=== PATIENT | female | born 1990 | race Caucasian/White ===

== ENCOUNTER 2018-08-09 13:28 | Outpatient (CLI) | payer OTHER ==
--- NOTE | 2018-08-10 12:28 | Ultrasound Report ---
Reason: ENCOUNTER FOR OTHER SPECIFIED SCREENING Procedure Date: 08/09/2018 Accession Number: [id number] / [id number] Procedure: US - OB Detailed Eval CPT Code: FULL RESULT: EXAM: COMPLETE OBSTETRICAL ULTRASOUND EXAM DATE: 08/09/2018 04:03 PM. CLINICAL HISTORY: anatomic survey. COMPARISON: None. TECHNIQUE: Real-time sonographic evaluation of the fetus performed by the triage registered nurse. Multiple hobbies and crafts sales representative static images were saved for review. DATING: Established EGA 21 weeks 5 days with PENNY 12/15/2018 based on ordering provider input. EGA 22 weeks 5 days with PENNY 12/08/2018 based on the current ultrasound. GENERAL EVALUATION Robin . Cardiac activity: 157 bpm. movement: Visualized. Presentation: Cephalic. Placenta: Posterior position. No evidence for previa. Umbilical cord: 3 vessel cord. Central placental cord origin. Amniotic fluid: Subjectively normal. MVP 4.0 cm and LUKE 15.3 cm. BIOMETRY Bi-Parietal Diameter (BPD): 5.7 cm, 23 weeks 2 days Head Circumference (HC): 21.2 cm, 23 weeks 1 day Abdominal Circumference (AC): 18.2 cm, 22 weeks 6 days Femur Length (FL): 3.7 cm, 22 weeks 0 days Estimated Weight: 526 g which approximately corresponds to the 90th percentile for 21 weeks and 5 days. ANATOMY The intracranial structures, profile, face/nose/lips, spine, 4 chamber heart and outflow tracts, stomach, abdominal wall and cord insertion, diaphragm, kidneys, bladder, and extremities were visualized and demonstrate no abnormality. MATERNAL STRUCTURES Uterus: Unremarkable. Cervix: Long and closed. Transabdominal length 4.5 cm. Right ovary/adnexa: Unremarkable. Left ovary/adnexa: Unremarkable. Free fluid: None. IMPRESSION: 1. Robin live intrauterine with gestational age 21 weeks 5 days based on obstetric provider input. 2. Estimated weight is around the 90th percentile for assigned dating. 3. Normal anatomic survey. No anatomic abnormalities are detected at this time. RADIA
== END 2018-08-09 13:29 | disposition home or self-care (01) ==
LOC: DI 13:28
PROVIDERS: ATTEND Nurse Practitioner Obstetrics & Gynecology
DX: Z36.89 Encounter for other specified antenatal screening (principal); Z3A.21 21 weeks gestation of pregnancy
CPT/HCPCS: 76811

== ENCOUNTER 2018-09-09 13:03 | Outpatient (CLI) | payer OTHER ==
[2018-09-09 14:28] LABS: HGB - HEMOGLOBIN 11.7 g/dL (12.0-16.0); MEAN CORPUSCULAR HGB CONC 35.7 g/dL (32.0-36.0); MEAN CORPUSCULAR VOLUME 89.5 fL (81.0-99.0); MEAN PLATELET VOLUME 7.4 fL (7.9-10.8); RED BLOOD COUNT 3.66 10^6/uL (4.20-5.40); RED CELL DISTRIBUTION WIDTH 13.6 % (12.0-15.0); WHITE BLOOD COUNT 9.3 x10^3/uL (4.8-10.8)
== END 2018-09-09 13:04 | disposition home or self-care (01) ==
LOC: LAB 13:03
PROVIDERS: ATTEND Registered Nurse
DX: Z34.90 Encounter for supervision of normal pregnancy, unspecified, unspecified trimester (principal)
CPT/HCPCS: 36415; 82950; 85027; 86850

== ENCOUNTER 2018-09-10 11:40 | Outpatient (CLI) | payer OTHER | END 2018-09-10 11:41 | disposition home or self-care (01) | LOC: LAB 11:40 | PROVIDERS: ATTEND Registered Nurse | DX: L29.9 Pruritus, unspecified (principal) | CPT/HCPCS: 36415; 82542 ==

== ENCOUNTER 2018-11-18 13:12 | Outpatient (CLI) | payer OTHER | END 2018-11-18 23:59 | disposition home or self-care (01) | LOC: LAB.R 13:12 | PROVIDERS: ATTEND Registered Nurse | DX: Z34.90 Encounter for supervision of normal pregnancy, unspecified, unspecified trimester (principal) | CPT/HCPCS: 87491; 87591; 87797 ==

== ENCOUNTER 2018-11-18 13:53 | Outpatient (CLI) | payer OTHER ==
[2018-11-19 13:12] LABS: HEPATITIS C ANTIBODY NON-REACTIVE (NON-REACTIVE)
[2018-11-19 14:15] LABS: HIV AG/AB 4TH GEN NON-REACTIVE (NON-REACTIVE)
== END 2018-11-18 13:54 | disposition home or self-care (01) ==
LOC: LAB 13:53
PROVIDERS: ATTEND Registered Nurse
DX: Z34.90 Encounter for supervision of normal pregnancy, unspecified, unspecified trimester (principal)
CPT/HCPCS: 36415; 81599; 86803; 87389

== ENCOUNTER 2018-12-16 02:21 | Inpatient (IN) | payer OTHER ==
[2018-12-16] MEDS ORDERED: AMPICILLIN 2 GM in SODIUM CHLORIDE 0.9% MINIBAG 100 ML IV ONE (02:46)
[2018-12-16] MEDS ORDERED: ONDANSETRON 4 MG/2 ML VIAL IVP PRN (02:46)
[2018-12-16] MEDS ORDERED: SODIUM CHLORIDE FLUSH 0.9% 10 ML SYRINGE IVP PRN (02:46)
[2018-12-16] MEDS ORDERED: fentaNYL 100 MCG/2 ML VIAL IVP PRN (02:46)
[2018-12-16] MEDS ORDERED: LACTATED RINGERS 1,000 ML IV SCH (03:00)
[2018-12-16 03:35] LABS: BASOPHILS % (AUTO) 0.4 %; EOSINOPHILS # (AUTO) 0.1 10^3/uL (0.0-0.7); EOSINOPHILS % (AUTO) 0.7 %; HGB - HEMOGLOBIN 12.7 g/dL (12.0-16.0); LYMPHOCYTES # (AUTO) 1.3 10^3/uL (1.5-3.5); MEAN CORPUSCULAR HEMOGLOBIN 31.9 pg (27.0-31.0); MEAN CORPUSCULAR HGB CONC 34.7 g/dL (32.0-36.0); MEAN CORPUSCULAR VOLUME 92.1 fL (81.0-99.0); MEAN PLATELET VOLUME 9.9 fL (7.9-10.8); MONOCYTES # (AUTO) 0.8 10^3/uL (0.0-1.0); MONOCYTES % (AUTO) 8.8 %; NEUTROPHILS # (AUTO) 7.2 10^3/uL (1.5-6.6); NEUTROPHILS % (AUTO) 76.1 %; PLT - PLATELET COUNT 124 10^3/uL (130-450); RED CELL DISTRIBUTION WIDTH 14.3 % (12.0-15.0); WHITE BLOOD COUNT 9.4 x10^3/uL (4.8-10.8)
[2018-12-16] MEDS ORDERED: OXYTOCIN/SODIUM CHLORIDE 500 ML IV ONE (04:31)
[2018-12-16] MEDS: AMPICILLIN 1 GM in SODIUM CHLORIDE 0.9% MINIBAG 100 ML IV SCH ×2 (07:31→11:55)
--- NOTE | 2018-12-16 07:33 | HISTORY & PHYSICAL EXAMINATION ---
Admit History - Visit Reason Visit Reason: Contractions - : 1 Parity: 0 Premature: 0 Ectopic: 0 : 0 Care: positive: [facility] Risk/History: positive: None Complications This : positive: None Smoking Status: Never smoker - Mother's Labs Mother's Blood Type: positive: A Mother's RH: positive: Negative GBS: positive: Group B Strep Positive Rubella Status: positive: Immune Meds/Allgy - Allergies Allergies/Adverse Reactions: Allergies Allergy/AdvReac Type Severity Reaction Status Date / Time No Known Drug Allergies Allergy Verified 12/16/18 03:07 Review of Systems - Constitutional Constitutional: denies: Fatigue, Fever, Chills, Malaise - Eyes Eyes: denies: Blurred vision, Spots in vision, Dipolpia - Cardiovascular Cariovascular: denies: Irregular heart rate, Chest pain, Edema - Respiratory Respiratory: denies: Cough, SOB at rest - Gastrointestinal Gastrointestinal: denies: Abdominal pain, Constipation, Diarrhea, Nausea, Vomiting - Integumentary Integumentary: denies: Rash, Pruritis - Neurological Neurological: denies: Headache - Psychiatric Psychiatric: denies: Depression, Anxiety Physical - Abdominal Exam Vital Signs: Temp Pulse Resp BP Pulse Ox 36.8 C 91 18 106/74 100 12/16/18 02:26 12/16/18 02:26 12/16/18 02:26 12/16/18 02:26 12/16/18 02:26 Contraction Frequency (min/apart): 3-5 Contraction Intensity: positive: Strong Uterine Resting Tone: positive: Soft - Monitoring Heart Rate Baseline: 130 Strip Review: positive: Category I - Presentation Presentation: positive: Vertex - Vaginal Exam Membranes: positive: Membranes intact Dilation (in cm): 6 Effacement (%): 80 Station: positive: -1 Cervical Position: positive: Anterior - Speculum Exam Speculum Exam Performed: positive: No Plan for Labor - Plan For Labor I expect patient to be DC'd or transferred within 96 hours.: Yes Plan for Labor: HPI: This 28yo @ 40.1wks gestation by LMP c/w 11.5wk U/S presents to [facility] on with complaints consistent uterine contractions which have increased in frequency and intensity. She denies VB or Lof. Reports +FM. She has been a patient of [facility] since 18wks gestation after she transferred her care from [facility]. She has received consistent care through the duration of her . Her has been uneventful with the exception of Rh positive status for which she received rhogam following her negative antibody screen at 28 weeks gestation, and testing positive for GBS at 36 weeks. She was admitted to [facility] for expectant management. Dating criteria: LMP 03/10/2018 Initial ultrasound at 11.5wks - agrees Serial exams - agree PMHx: none Surgical hx: none Social Hx: Never smoker. No ETOH or IVDA. Family Hx: Breast cancer - mother, maternal grandmother; Diabetes - Father; Heart disease - maternal grandfather Genetic Hx: neg pt; neg FOB Immunizations: Tdap 09/28/2018 Rhogam 09/28/2018 Obstetric Hx: G1: Current Physical Exam: Normocephalic, atraumatic Heart RRR w/o M/G/R Lungs CTAB Abdomen soft and nontender EFW 3200g SVE 6/80/-1, vertex, posterior, BOW intact Contractions palpate firm every 3-5 minutes with soft resting tone Bilateral LE's trace edema Assessment: 28yo @ 40.1wks gestation by L=11.3wk U/S Active labor BOW intact GBS positive Thrombocytopenia on admit - PLT 124 Plan: Intrapartum antibiotic prophylaxis per protocol secondary to GBS positive status. Intermittent auscultation of heart rate Continue expectant management Encouraged movement and position changes Anticipate spontaneous vaginal delivery
--- NOTE | 2018-12-16 08:00 | PROVIDER PROGRESS NOTE ---
Labor Progress Note - Uterine Monitoring Uterine Monitoring Mode: positive: Palpation Contraction Frequency (min/apart): 3-5 Contraction Intensity: positive: Strong Uterine Resting Tone: positive: Soft - Monitoring Monitor Mode: positive: Doppler/auscultation Heart Rate Baseline: 140 Decelerations: positive: None - Labor Progress Note Labor Progress Note/Additional Text: S: Patient breathing through contractions and coping well. She felt increased rectal pressure but did have a bowel movement and the rectal pressure resolved. Her and her steel burner are supportive at the bedside. The pt declines SVE. O: BP 106/74, HR 80 FHR baseline 140s via intermittent auscultation without audible decelerations in heart rate with, during, or after contractions SVE deferred per patient request A: 28yo @ 40.1wks gestation by LMP GBS positive - s/p 2 doses of Ampicillin Active labor BOW intact P: Intermittent auscultation of heart rate Continue expectant management Continue IPAP for GBS positive status per protocol Anticipate spontaneous vaginal delivery
[2018-12-16] MEDS ORDERED: SODIUM CHLORIDE FLUSH 0.9% 10 ML SYRINGE IVP SCH (09:00)
[2018-12-16] MEDS ORDERED: LIDOCAINE 1% 50 ML MDV TD ONE (15:34)
[2018-12-16] MEDS ORDERED: OXYTOCIN/SODIUM CHLORIDE 500 ML IV PRN (15:35)
[2018-12-16] MEDS ORDERED: WITCH HAZEL/GLYCERIN 1 EACH MED..PAD TOP PRN (16:17)
[2018-12-16] MEDS ORDERED: HYDROCORTISONE 1% CREAM 28 GM TUBE PR PRN (16:17)
[2018-12-16] MEDS ORDERED: miSOPROStol 200 MCG TABLET PO SCH (16:19)
[2018-12-16] MEDS ORDERED: ACETAMINOPHEN 325 MG TABLET PO PRN (16:35)
[2018-12-16] MEDS: IBUPROFEN 800 MG TABLET PO SCH ×2 (16:40→23:02)
[2018-12-16] MEDS ORDERED: LIDOCAINE-MPF 1% 30 ML VIAL ONE (16:44)
--- NOTE | 2018-12-16 16:48 | DELIVERY NOTE ---
Delivery Note - Labor Labor: positive: Spontaneous, Augmented by ARM - Infant Delivery Method Delivery Method: positive: Spontaneous vaginal delivery - Presentation Presentation: positive: Vertex, Compound, AKOSUA - left occiput anterior - Nuchal Cord Nuchal Cord: positive: None - Amniotic Fluid Description Amniotic Fluid Description: positive: Clear - Episiotomy Type Episiotomy Type: positive: None - Laceration Laceration: positive: 2nd degree - Suture Suture Type: positive: Vicryl Suture Size: positive: 2-0 - Delivery Outcome Delivery Outcome: positive: Livebirth - [place]: positive: Placed in direct skin contact with mother, Stimulated, Warmed, [place] used [place] sex: positive: Female - Cord Cord: positive: 3 vessels - Placenta Placenta: positive: Manual removal - Estimated Blood Loss Estimated Blood Loss (in cc): 450 - Post Delivery Events Post Delivery Events: positive: No post delivery events - Delivery Comments (Free Text/Narrative) Delivery Comments (Free Text/Narrative): Labor: This 28yo @ 40.1wks gestation by LMP presented 12/16/2018 @ approximately 0230 in active labor. Cervix was 6/80/-1, vertex with intact membranes. She was admitted to [facility] for expectant management. FHR pattern demonstrated Category I pattern throughout labor. AROM occurred at 0821 and was noted to be a moderate amount of clear fluid. Patient progressed to c/c/+2 at 1255. : Normal of [id number] female infant on 12/16/2018 @ 1509. No nuchal cord. Left, cross-body compound hand. 's 8/9 at 1 and 5 min respectively. The was placed on maternal abdomen, stimulated, dried, and placed skin to skin. Pitocin administered via IV for hemostasis. The umbilical cord was allowed to stop pulsating at which time it was doubly clamped by CNM and cut by FOB. Cord blood was obtained. Leading membranes delivered without delivery of the placenta and IV pitocin was shut off to allow for manual removal. The umbilical cord insertion site appeared to be <2cm from placenta edge. Placenta required manual removal secondary to inability to apply gentle, downward traction due to the umbilical cord location and patient's increased rate of bleeding. Placenta removed completely and all sections appear to have been removed. 3VC. Pitocin resumed via IV for hemostasis with little improvement in brisk flow of bleeding. 800mcg misoprostol orally administered and bleeding completely subsided. EBL 450mL. Uterine fundus firm and bleeding is moderate to minimal. The perineum, vagina, and cervix were inspected and found to have 2nd degree vaginal laceration which was repaired using a 2-[address]-1 needle in standard fashion under sterile conditions. Vaginal and rectal examination following repair was completed. Tissues well approximated. initiated. Family bonding well. Both mother and were left in stable condition.
[2018-12-16] MEDS ORDERED: LOPERAMIDE 2 MG CAPSULE PO PRN (19:03)
[2018-12-16] MEDS ORDERED: RHO(D) IMMUNE GLOBULIN 300 MCG SYRINGE IVP ONE (19:58)
[2018-12-17] MEDS: IBUPROFEN 800 MG TABLET PO SCH ×3 (04:58→21:40)
[2018-12-17 10:24] LABS: MEAN CORPUSCULAR HEMOGLOBIN 31.8 pg (27.0-31.0); MEAN CORPUSCULAR HGB CONC 34.3 g/dL (32.0-36.0); MEAN CORPUSCULAR VOLUME 92.9 fL (81.0-99.0); MEAN PLATELET VOLUME 9.6 fL (7.9-10.8); RED BLOOD COUNT 3.14 10^6/uL (4.20-5.40); RED CELL DISTRIBUTION WIDTH 14.2 % (12.0-15.0); WHITE BLOOD COUNT 11.2 x10^3/uL (4.8-10.8)
--- NOTE | 2018-12-17 10:32 | PROVIDER PROGRESS NOTE ---
Subjective - Subjective Subjective: S: Bonding well with baby. without difficulty. Bleeding minimal. Pain well controlled with oral medications. She is sore but overall feeling well. Denies GIRARD, dizziness or light headedness. Denies excessive fatigue. O: BP 108/73, HR 76, T 36.6, RR 14 Heart RRR w/o M/G/R, lungs CTAB, abdomen soft and nontender with fundus firm at U. Bilateral LE's 1+ pitting edema to feet - significant improvement from yesterday. Perineum intact, repair with moderate edema. A: 28yo -->P1 PPD#1 s/p TSVD of viable female 2nd degree perineal laceration - intact Thrombocytopenia on admission (PLT 124) P: Continue routine care and medications. Repeat CBC today secondary to 450mL EBL and thrombocytopenia on admission. Evaluate for discharge home tomorrow. Pt verbalized understanding and agrees to above plan. Denies further questions or concerns at this time. Objective - Vital Signs/Intake & Output Vital Signs: Vital Signs x48h Temp Pulse Resp BP BP Pulse Ox 12/17/18 08:00 36.6 C 76 14 108/73 12/17/18 05:21 37 C 85 16 109/69 98 Intake & Output: Intake & Output 12/14/18 12/15/18 12/16/18 12/17/18 23:59 23:59 23:59 23:59 Intake Total 1800 Output Total 2110 Balance -310 - Lab Results Fish Bones: 12/17/18 10:00 Other Labs: Lab Results x24hrs 12/17/18 12/16/18 Range/Units 10:00 23:50 WBC 11.2 H (4.8-10.8) x10^3/uL RBC 3.14 L (4.20-5.40) 10^6/uL Hgb 10.0 L (12.0-16.0) g/dL Hct 29.1 L (37.0-47.0) % MCV 92.9 (81.0-99.0) fL MCH 31.8 H (27.0-31.0) pg MCHC 34.3 (32.0-36.0) g/dL RDW 14.2 (12.0-15.0) % Plt Count 101 L (130-450) 10^3/uL MPV 9.6 (7.9-10.8) fL Blood Type A NEGATIVE Weak D (Du) WEAK-D NEGATIVE Maternal Bleed NEGATIVE (NEGATIVE)
[2018-12-17] MEDS: DOCUSATE SODIUM 100 MG CAPSULE PO SCH (16:31)
[2018-12-17 20:57] LABS: HGB - HEMOGLOBIN 10.3 g/dL (12.0-16.0); MEAN CORPUSCULAR HEMOGLOBIN 32.2 pg (27.0-31.0); MEAN CORPUSCULAR HGB CONC 34.5 g/dL (32.0-36.0); MEAN CORPUSCULAR VOLUME 93.5 fL (81.0-99.0); MEAN PLATELET VOLUME 9.3 fL (7.9-10.8); RED BLOOD COUNT 3.19 10^6/uL (4.20-5.40); RED CELL DISTRIBUTION WIDTH 14.5 % (12.0-15.0); WHITE BLOOD COUNT 10.2 x10^3/uL (4.8-10.8)
[2018-12-18] MEDS: DOCUSATE SODIUM 100 MG CAPSULE PO SCH ×2 (01:23→11:49)
[2018-12-18] MEDS: IBUPROFEN 800 MG TABLET PO SCH ×2 (04:07→10:26)
--- NOTE | 2018-12-18 05:35 | PROVIDER PROGRESS NOTE ---
Subjective - Subjective Subjective: FINAL PROGRESS NOTE: S: Bonding well with baby. without difficulty. Bleeding decreased and is light. Pain well controlled with oral medications. She denies GIRARD, visual disturbances, RUQ or epigastric pain. supportive at the bedside. O: BP 102/78, T 36.6, HR 86 Heart RRR w/o M/G/R, Lungs CTAB, abdomen soft and nontender with fundus firm at U-1, perineum intact - repair with mild edema, light lochia rubra. Bilateral LE's 2+ pitting edema to feet bilaterally. Hgb 12.7-->10.0-->10.3 Hct 36.8 __>29.1-->29.8 PLT 124-->101-->111 A: 28yo -->P1 PPD #2 s/p TSVD of viable female Gestational thrombocytopenia - PLT count improved, normotensive, physiologic drop in Hgb & Hct with improved @ 24hrs 2nd degree perineal laceration - intact P: Discharge home today on PPD#2 Reviewed self care and warning s/sx and when to present. Reviewed PET warning s/sx and when to present. Advised continuation of PNV while Advised OTC tylenol and ibuprofen for pain management Return in 1 week for support visit and in 3 weeks for routine pp visit or sooner PRN. supportive at the bedside and both pt and verbalized u nderstanding and agree to above plan. They deny further questions or concerns today. Objective - Vital Signs/Intake & Output Vital Signs: Vital Signs x48h Temp Pulse Resp BP Pulse Ox 12/18/18 04:12 36.6 C 86 18 102/78 100 Intake & Output: Intake & Output 12/15/18 12/16/18 12/17/18 12/18/18 23:59 23:59 23:59 23:59 Intake Total 1800 Output Total 2110 Balance -310 - Lab Results Fish Bones: 12/17/18 20:51 Other Labs: Lab Results x24hrs 12/17/18 12/17/18 Range/Units 20:51 10:00 WBC 10.2 11.2 H (4.8-10.8) x10^3/uL RBC 3.19 L 3.14 L (4.20-5.40) 10^6/uL Hgb 10.3 L 10.0 L (12.0-16.0) g/dL Hct 29.8 L 29.1 L (37.0-47.0) % MCV 93.5 92.9 (81.0-99.0) fL MCH 32.2 H 31.8 H (27.0-31.0) pg MCHC 34.5 34.3 (32.0-36.0) g/dL RDW 14.5 14.2 (12.0-15.0) % Plt Count 111 L 101 L (130-450) 10^3/uL MPV 9.3 9.6 (7.9-10.8) fL
--- NOTE | 2018-12-18 05:35 | Discharge Plan ---
Discharge Plan Disposition: 01 Home, Self Care Condition: Good Diet: Regular Activity Restrictions: No Restrictions Shower Restrictions: No Driving Restrictions: No Weight Bearing: Full Weight No Smoking: If you smoke, Please STOP! Call for help. Follow-up with: Tati Collins CNM, ARNP [Provider Admit Priv/Credential] -
[2018-12-18 11:56] VITALS: BP 107/74
--- NOTE | 2018-12-18 12:44 | Labor Flowsheet ---
Labor Flowsheet Datetime Report Generated by CPN: 12/18/2018 12:44 Datetime: 12/18/2018 11:52 VITAL SIGNS NBP Sys/Ree/Mean (mmHg): 107 : 74 : 82 Pulse: 97
--- NOTE | 2018-12-18 13:12 | DISCHARGE SUMMARY ---
Physician: SALUD Womack DATE OF ADMISSION: 12/16/2018 DATE OF DISCHARGE: 12/18/2018 DIAGNOSES ON ADMISSION 1. A 28-year-old G1, P0 at 40 +1 week's gestation by LMP. 2. Active labor. 3. Group B streptococcus positive. 4. Thrombocytopenia on admission with a platelet count of 124. DIAGNOSES ON DISCHARGE 1. A 28-year-old G1, P1-0-0-1, day #2, status post spontaneous vaginal delivery on 12/16/2018. 2. . 3. Normal recovery. 4. Gestational thrombocytopenia with physiologic drop in platelet count with increased platelet count 24 hours after delivery. BRIEF HISTORY: Patient is a patient of [facility] who presented on 12/16/2018 with complaints of contractions. Upon arrival, she was noted to be 6 cm dilated, 80% effaced, and -1 station, and a vertex position with bag of water intact. She was admitted for expectant management. AROM occurred at 0821 hours and was noted to be a moderate amount of clear fluid. The patient progressed to complete at 1255 on 12/16/2018. Normal of 8-pound 11-ounce female on 12/16/2018 at 1509. No nuchal cord. Left cross body compound hand. Apgars 8 and 9 at one and five minutes, respectively. Placenta required manual removal secondary to inability to apply gentle downward traction due to the umbilical cord location and the patient's increased rate of vaginal bleeding. The placenta was removed completely, and all sections appear to have been removed. Three-vessel cord. Pitocin administered via IV for hemostasis with little improvement in brisk flow of bleeding. The patient also received 800 mcg of misoprostol orally administered, and bleeding subsided. EBL 450 mL. Patient has remained asymptomatic. The perineum, vagina, and cervix were inspected and found to have second-degree vaginal laceration, which were repaired using a 2-0 Vicryl on a CT1 needle in standard fashion under sterile conditions. She has been doing well in her course. She is ambulating and tolerating a regular diet. She is urinating without difficulty, and her lochia is normal. Her pain is well controlled with oral medications. She will be discharged home today on day #2 with instructions to continue her vitamin while and to take ibuprofen and Tylenol [id number] for pain management as needed. She intends to follow up with myself at [facility] in 1 week for support visit and in 3 weeks for routine visit. She has been given precautions to call if she has any worsening fevers, chills, abdominal pain, increased vaginal bleeding, or foul smelling vaginal lochia. TD: 12/18/2018 05:41 YOLANDA
== END 2018-12-18 12:40 | disposition home or self-care (01) | DRG 805 ==
LOC: WFO 02:21 → FBP 02:23 → WFO 02:45 → FBP 02:46
PROVIDERS: ADMIT Nurse Practitioner Obstetrics & Gynecology; ATTEND Nurse Practitioner Obstetrics & Gynecology
PROC: 10E0XZZ Delivery of Products of Conception, External Approach (ICD-10-PCS; principal; 2018-12-16)
PROC: 0KQM0ZZ Repair Perineum Muscle, Open Approach (ICD-10-PCS; 2018-12-16)
PROC: 10907ZC Drainage of Amniotic Fluid, Therapeutic from Products of Conception, Via Natural or Artificial Opening (ICD-10-PCS; 2018-12-16)
DX: O70.1 Second degree perineal laceration during delivery (principal); O67.0 Intrapartum hemorrhage with coagulation defect; Z37.0 Single live birth; D69.6 Thrombocytopenia, unspecified; O32.6XX0 Maternal care for compound presentation, not applicable or unspecified; O26.893 Other specified pregnancy related conditions, third trimester; Z67.11 Type A blood, Rh negative; Z22.330 Carrier of Group B streptococcus; Z3A.40 40 weeks gestation of pregnancy
CPT/HCPCS: 36415; 83033; 85025; 85027; 86900; 86901; 99213; A9270; J7120

== ENCOUNTER 2018-12-22 15:05 | Outpatient (CLI) | payer OTHER ==
[2018-12-22 15:28] LABS: BASOPHILS # (AUTO) 0.1 10^3/uL (0.0-0.1); BASOPHILS % (AUTO) 0.6 %; EOSINOPHILS # (AUTO) 0.1 10^3/uL (0.0-0.7); EOSINOPHILS % (AUTO) 1.6 %; HGB - HEMOGLOBIN 13.4 g/dL (12.0-16.0); LYMPHOCYTES # (AUTO) 1.4 10^3/uL (1.5-3.5); LYMPHOCYTES % (AUTO) 15.1 %; MEAN CORPUSCULAR HEMOGLOBIN 31.5 pg (27.0-31.0); MEAN CORPUSCULAR VOLUME 92.5 fL (81.0-99.0); MEAN PLATELET VOLUME 7.9 fL (7.9-10.8); MONOCYTES # (AUTO) 0.4 10^3/uL (0.0-1.0); MONOCYTES % (AUTO) 4.7 %; PLT - PLATELET COUNT 271 10^3/uL (130-450); RED BLOOD COUNT 4.25 10^6/uL (4.20-5.40); RED CELL DISTRIBUTION WIDTH 13.8 % (12.0-15.0)
[2018-12-22 15:42] LABS: CREATININE 0.6 mg/dL (0.4-1.0); URIC ACID 5.3 mg/dL (2.6-7.2)
== END 2018-12-22 15:06 | disposition home or self-care (01) ==
LOC: LAB 15:05
PROVIDERS: ATTEND Nurse Practitioner Obstetrics & Gynecology
DX: R42 Dizziness and giddiness (principal)
CPT/HCPCS: 36415; 82565; 83615; 84450; 84550; 85025

== ENCOUNTER 2019-02-18 20:18 | Outpatient (CLI) | payer OTHER ==
--- NOTE | 2019-02-18 21:34 | Ultrasound Report ---
Reason: ABNORMAL VAGINAL BLEEDING Procedure Date: 02/18/2019 Accession Number: [id number] / [id number] Procedure: US - Pelvic w/Transvaginal CPT Code: FULL RESULT: EXAM: PELVIC ULTRASOUND EXAM DATE: 02/18/2019 08:54 PM. CLINICAL HISTORY: ABNORMAL VAGINAL BLEEDING. COMPARISON: None. TECHNIQUE: Realtime transabdominal pelvic scan performed to identify the uterus and adnexa and as an overview of other pelvic structures, followed by transvaginal scan to provide greater detail of the uterus and adnexa, with static image documentation. FINDINGS: Uterus: 7.4 x 3.9 x 5.7 cm, volume 86 cc. Retroverted position. Normal overall size and echotexture. Masses: None. Endometrium: 11 mm. Within the endometrial canal/endometrium there is heterogeneous increased signal intensity and increased vascularity yet no focal definable mass although a polyp is not excluded. Cervix: Unremarkable. Right Ovary: 2.7 x 1.5 x 3.1 cm, volume 6.6 cc. Normal echotexture and blood flow. Left Ovary: 3 x 1.4 x 2.4 cm, volume 5 cc. Normal echotexture and blood flow. Free Fluid: None. Other: None. IMPRESSION: 1. Increased echogenicity within the endometrial cavity and increased vascularity. No definable mass, although a polyp is not excluded. RADIA
== END 2019-02-18 20:19 | disposition home or self-care (01) ==
LOC: DI 20:18
PROVIDERS: ATTEND Nurse Practitioner Obstetrics & Gynecology
DX: N93.9 Abnormal uterine and vaginal bleeding, unspecified (principal)
CPT/HCPCS: 76830; 76856